=== PATIENT | female | born 1980 | race American Indian/Alaskan Native ===

== ENCOUNTER 2018-04-15 07:22 | Emergency (ER) | payer OTHER ==
[2018-04-15 07:42] VITALS: BP 144/93
[2018-04-15 08:02] LABS: HCG Qualitative,Urine Negative (Negative)
--- NOTE | 2018-04-15 08:09 | Emergency Department Report ---
ED Dysuria HPI - HPI Chief Complaint: Urogenital-Female Stated Complaint: CRAMPS AND BLEEDING Time Seen by Provider: 04/15/18 07:51 Duration: 1 Day Symptoms: Dysuria: No, Frequency: No, Suprapubic Pain: No, Flank Pain: No, Fever: No, Hematuria: No, Abdominal Pain: No, Previous UTI's: No Other History: Patient is a 37-year-old female who comes to the ER today with vaginal spotting. She was concerned because she had her period from April 06 to the . And then began spotting again yesterday. Patient was concerned that she was because she is trying to get . ED Review of Systems ROS: Stated complaint: CRAMPS AND BLEEDING Other details as noted in HPI Comment: All other systems reviewed and negative Constitutional: denies: chills Eyes: denies: as per HPI ENT: denies: ear pain Respiratory: denies: orthopnea Cardiovascular: denies: dyspnea on exertion Endocrine: denies: excessive sweating Genitourinary: as per HPI, hematuria, abnormal menses. denies: urgency, dysuria, frequency, discharge, dyspareunia Musculoskeletal: as per HPI ED Past Medical Hx - Social History Smoking Status: Never Smoker Substance Use Type: None Dysuria Exam - Exam General: Vital signs noted. No distress. Alert and acting appropriately. Exam: No Moist Mucous Membranes, No CVA Tenderness, No Abdominal Tenderness, No Rigidity or Guarding Labs: Lab Results 04/15/18 Range/Units 07:50 Urine HCG, Qual Negative (Negative) ED Course Vital Signs 04/15/18 07:34 Temperature 97.5 F L Pulse Rate 82 Respiratory 16 Rate Blood Pressure 144/93 O2 Sat by Pulse 100 Oximetry ED Medical Decision Making - Medical Decision Making Labs 04/15/18 07:50 Urine Color Red Urine Turbidity Slightly-cloudy Urine pH 6.0 Ur Specific Lisman 1.020 Urine Protein 100 mg/dl Urine Glucose (UA) Neg Urine Ketones Neg Urine Blood Lg Urine Nitrite Neg Ur Reducing Substances Not Reportable Urine Bilirubin Neg Urine Ictotest Not Reportable Urine Urobilinogen < 2.0 Ur Leukocyte Esterase Sm Urine WBC (Auto) 55.0 H Urine RBC (Auto) > 182.0 U Epithel Cells (Auto) 7.0 Urine Mucus Few Urine HCG, Qual Negative test negative. In discussing test results with patient she shared that she was really just concerned that she was . She is having no dysuria and she denies being concern for STD. I've offered a wet prep and Chlamydia gonorrhea test and she is declined. 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 Patient declined further testing. Critical care attestation.: If time is entered above; I have spent that time in minutes in the direct care of this critically ill patient, excluding procedure time. ED Disposition Clinical Impression: Irregular menses Disposition: TO HOME OR SELFCARE Is pt being admited?: No Does the pt Need Aspirin: No Condition: Stable Referrals: JHON BARRETO MD [Primary Care Provider] - 3-5 Days Time of Disposition: 08:24
[2018-04-15 08:11] LABS: Bilirubin,Urine NEG (Negative); Blood,Urine LG (Negative); Color,Urine Red (Yellow); Mucus,Urine FEW /HPF; Urobilinogen,Urine < 2.0 mg/dL (<2.0)
[2018-04-15 08:22] LABS: RBC,Urine > 182.0 /HPF (0.0-6.0)
== END 2018-04-15 08:40 | disposition home or self-care (01) ==
LOC: ED 07:22
DX: N92.6 Irregular menstruation, unspecified (principal)
CPT/HCPCS: 81001; 81025

== ENCOUNTER 2018-10-13 05:52 | Day surgery (SDC) | payer OTHER ==
--- NOTE | 2018-10-11 22:40 | History and Physical Report ---
History of Present Illness Date of examination: 10/09/18 History of present illness: Patient has been reassessed/reevaluated. H&P has been reviewed. No interval changes. This is a 38 years old female who presents with pelvic pain. Pt was being seen by [facility] and was diagnosed with large ovarian mass. Patient's work up has included pelvic ultrasounds which revealed a 8cm cystic mas with 5cm solid mass of left ovary. She does not report any increas in pain but does state she noted that her abdomen has been more bloated. She denies dysuria, dysmenorrhea, dyspareunia, vaginal itching, vaginal discharge, vaginal odor, painful bowel movements, constipation, diarrhea, nausea, vomiting, back pain and fever. Pain is located suprapubic. She describes the pain as pressure. Vital Signs: Patient Profile: 38 Years Old Female LMP: 10/02/2018 Height: 61 inches (154.94 cm) Weight: 156 pounds (70.91 kg) BMI: 29.47 BSA: 1.70 Menstrual History: LMP (date): 10/02/2018 Current Method of Contraception: None Past History : 4 Term Births: 3 Premature Births: 0 Living Children: 3 Para: 3 Mult. Births: 0 Prev : 0 Aborta: 1 Elect. Ab: 0 Spont. 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 Uterine Surgery (not C/S): negative Operations: Negative Past Surgical History Hospitalizations: negative Anesthesia Complications: negative Abnormal PAP: negative Uterine Anomaly: negative ILYA Exposure: negative Infertility: negative Infection History HIV Risk Eval: no Current Allergies (reviewed today): No known allergies Past Medical History: Negative Past Medical History Past Surgical History: Negative Past Surgical History Family History Summary: mother -pre diabetic Social History: +tobacco daily single works at [employer] Patient is single Smoking History: Patient currently smokes every day. Risk Factors: Smoked Tobacco Use: Current every day smoker Smokeless Tobacco Use: Never Passive smoke exposure: no Drug use: no HIV high-risk behavior: no Alcohol use: yes Exercise: no Seatbelt use: 100 % Review of Systems General Denies fever, chills, sweats, anorexia, fatigue, weakness, malaise, weight loss and sleep disorder. Complains of pelvic pain. Denies vaginal discharge, incontinence, dysuria, hematuria, urinary frequency, amenorrhea, menorrhagia, abnormal vaginal bleeding, genital sores, decreased libido, painful periods, painful sex, urinary urgency, hot flashes, vaginal dryness, vaginal itching and vaginal odor. CV Denies chest pains, palpitations, syncope, dyspnea on exertion, orthopnea, PND and peripheral edema. Resp Denies cough, dyspnea at rest, excessive sputum, hemoptysis, wheezing and pleurisy. GI Denies nausea, vomiting, diarrhea, constipation, change in bowel habits, abdominal pain, melena, hematochezia, jaundice, gas/bloating, indigestion/heartburn, dysphagia and odynophagia. Breast Denies left breast lump, right breast lump, nipple discharge, bloody discharge from nipple, breast pain, abnormal mammogram and breast enlargement. Psych Past History Past Medical History: other (SEE HPI) Past Surgical History: Other (SEE HPI) Social history: other (SEE HPI) Family history: other (SEE HPI) Medications and Allergies Allergies Allergy/AdvReac Type Severity Reaction Status Date / Time No Known Allergies Allergy Unverified 10/06/18 14:08 Home Medications Medication Instructions Recorded Confirmed Last Taken Type Multivitamin [Multiple Vitamins] 1 each PO DAILY 10/06/18 10/06/18 Unknown History Active Meds: Active Medications Celecoxib (Celebrex) 200 mg PO PREOP NR Stop: 10/13/18 23:59 Gabapentin (Neurontin) 300 mg PO PREOP NR Stop: 10/13/18 23:59 Lactated Ringer's (Lactated Ringers) 1,000 mls @ 100 mls/hr IV DIRECT CELE Midazolam HCl (Versed) 2 mg IV PREOP NR Stop: 10/13/18 23:59 Review of Systems Constitutional: other (SEE HPI) Exam - Physical Exam Narrative exam: HEENT: normocephalic, no lesions or deformities Skin no ulcers, xanthomas Chest: respiratory effort normal, clear to auscultation CV: regular, normal S1-S2, no murmur, no rub, no gallop Abdomen: soft, non-tender, no masses, bowel sounds normal Neuro: no gross anomalities Extremities: normal alignment, no joint enlargement, crepitus, masses or tenderness; normal tone and strength 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 No evidence of cystocele or rectocele. Cervix: normal appearance, no lesions, no discharge Uterus: normal position, midline, mobile Adnexae: no masses or tenderness Rectovaginal: exam defered Assessment and Plan - Patient Problems (1) Ovarian mass, left Current Visit: No Status: Acute Plan to address problem: Diagnosis explained to patient . Questions answered. Indications for and description of the procedure given. Questions answered. Patient agrees to proceed with robotic ovarian cystectomy. Discuss the risks of the surgery including infection, bleeding possibly heavy enough to require a blood transfusion, possible removal of her ovary and possible damage to adjacent organs. Also discussed the possibility of laparotomy needed. Questions answered patient agreed to proceed
[~2018-10-13 05:52] MED LIST: LACTATED RINGERS 1,000 ML IV SCH
[2018-10-13] MEDS ORDERED: VERSED IV NR (06:00)
[2018-10-13] MEDS ORDERED: NEURONTIN PO NR (06:00)
[2018-10-13] MEDS ORDERED: MARCAINE-EPI 0.25%-1:200,000 INFILTRATI ONE ×2 (07:15→07:59)
--- NOTE | 2018-10-13 07:16 | Anesthesia Day of Surgery ---
Anesthesia Day of Surgery - Day of Surgery Patient Examined: Yes Patient H&P Reviewed: Yes Patient is NPO: Yes
--- NOTE | 2018-10-13 07:16 | Anesthesia Consultation ---
Anesthesia Consult and Med Hx Date of service: 10/13/18 - Airway Anesthetic Teeth Evaluation: Good (broken upper left molar) ROM Head & Neck: Adequate Mental/Hyoid Distance: Adequate Mallampati Class: Class III Intubation Access Assessment: Possibly Difficult - Pulmonary Exam CTA: Yes - Cardiac Exam Cardiac Exam: RRR - Pre-Operative Health Status ASA Pre-Surgery Classification: ASA2 Proposed Anesthetic Plan: General - Pulmonary Hx Smoking: Yes (4-5cigs/day x12yrs) Hx Respiratory Symptoms: No - Cardiovascular System Hx Hypertension: No Hx Heart Attack/AMI: No Hx Percutaneous Transluminal Coronary Angioplasty (PTCA): No Hx Cardia Arrhythmia: No - Central Nervous System Hx Seizures: No CVA: No - Gastrointestinal Hx Gastroesophageal Reflux Disease: No - Endocrine Hx Renal Disease: No Hx Liver Disease: No Hx Insulin Dependent Diabetes: No Hx Non-Insulin Dependent Diabetes: No Hx Thyroid Disease: No - Other Systems Hx Alcohol Use: Yes (Occas) Hx Substance Use: Yes (Marijuana 2-3 times/week) Hx Obesity: No - Additional Comments Anesthesia Medical History Comments: No hx anesthetic complications.
[2018-10-13] MEDS ORDERED: DIPRIVAN 10 MG/ML IV ONE (07:23)
[2018-10-13] MEDS ORDERED: SUBLIMAZE ONE ×2 (07:23→09:47)
[2018-10-13 07:26] LABS: Basophils # (Auto) 0.1 K/mm3 (0.0-0.1); Basophils % (Auto) 0.5 % (0.0-1.8); Eosinophils # (Auto) 0.1 K/mm3 (0.0-0.4); Eosinophils % (Auto) 0.8 % (0.0-4.3); Hematocrit 38.2 % (30.3-42.9); Hemoglobin 13.7 gm/dl (10.1-14.3); Lymphocytes # (Auto) 3.9 K/mm3 (1.2-5.4); Lymphocytes % (Auto) 35.4 % (13.4-35.0); Mean Corpuscular HGB Conc 36 % (30-34); Mean Corpuscular Volume 80 fl (79-97); Monocytes # (Auto) 0.8 K/mm3 (0.0-0.8); Monocytes % (Auto) 6.9 % (0.0-7.3); Red Blood Count 4.77 M/mm3 (3.65-5.03); Red Cell Distribution Width 13.7 % (13.2-15.2)
[2018-10-13] MEDS ORDERED: XYLOCAINE MPF 2% ONE (07:27)
[2018-10-13] MEDS ORDERED: ZEMURON IV ONE ×2 (07:27→09:07)
[2018-10-13 07:35] LABS: Platelet Count TNR K/mm3 (140-440)
[2018-10-13] MEDS ORDERED: DILAUDID IV PRN (08:00)
[2018-10-13] MEDS ORDERED: NACL 0.9% IR ONE ×2 (08:00→10:10)
[2018-10-13] MEDS ORDERED: DILAUDID ONE (08:07)
[2018-10-13] MEDS ORDERED: DECADRON ONE (08:09)
[2018-10-13] MEDS ORDERED: ZOFRAN ONE (08:09)
[2018-10-13] MEDS ORDERED: ROBINUL ONE (09:58)
[2018-10-13] MEDS ORDERED: BLOXIVERZ ONE (09:58)
--- NOTE | 2018-10-13 10:20 | Short Stay Summary ---
Short Stay Documentation Date of service: 10/13/18 - History H&P: dictated Past Medical History: other (SEE HPI) Past Surgical History: Other (SEE HPI) Social history: other (SEE HPI) - Allergies and Medications Current Medications: Allergies No Known Allergies Allergy (Unverified 10/06/18 14:08) Home Medications Medication Instructions Recorded Confirmed Last Taken Type Multivitamin [Multiple Vitamins] 1 each PO DAILY 10/06/18 10/13/18 10/12/18 12:00 History DOXYCYCLINE Hyclate [Vibramycin 100 mg PO Q12HR #14 capsule 10/13/18 Unknown Rx CAP] Ibuprofen [Motrin 800 MG tab] 800 mg PO Q6H PRN #30 tablet 10/13/18 Unknown Rx oxyCODONE /ACETAMINOPHEN [Percocet 1 - 2 tab PO Q4H PRN #20 tablet 10/13/18 Unknown Rx 5/325 mg] Active Medications Celecoxib (Celebrex) 200 mg PO PREOP NR Stop: 10/13/18 23:59 Last Admin: 10/13/18 07:16 Dose: 200 mg Documented by: Gabapentin (Neurontin) 300 mg PO PREOP NR Stop: 10/13/18 23:59 Last Admin: 10/13/18 07:16 Dose: 300 mg Documented by: Hydromorphone HCl (Dilaudid) 0.5 mg IV Q10MIN PRN PRN Reason: Pain , Severe (7-10) Stop: 10/13/18 16:00 Lactated Ringer's (Lactated Ringers) 1,000 mls @ 100 mls/hr IV DIRECT CELE Last Admin: 10/13/18 07:05 Dose: 100 mls/hr Documented by: Midazolam HCl (Versed) 2 mg IV PREOP NR Stop: 10/13/18 23:59 Last Admin: 10/13/18 07:15 Dose: 2 mg Documented by: - Brief post op/procedure progress note Date of procedure: 10/13/18 (see operative note) - Hospital course Hospital course: Patient was admitted underwent the above him procedure without any complications. Patient will be discharged with follow-up in office in 1-2 weeks for postop check. - Disposition Condition at discharge: Good Disposition: DC-01 TO HOME OR SELFCARE - Discharge Diagnoses (1) Ovarian mass, left Status: Acute Short Stay Discharge Plan Activity: advance as tolerated Diet: regular Wound: open to air Follow up with: PRIMARY CARE,MD [Primary Care Provider] - 7 Days Forms: Outpatient Surgery DC Inst. Prescriptions: Ibuprofen [Motrin 800 MG tab] 800 mg PO Q6H PRN #30 tablet PRN Reason: Pain oxyCODONE /ACETAMINOPHEN [Percocet 5/325 mg] 1 - 2 tab PO Q4H PRN #20 tablet PRN Reason: Pain, Moderate DOXYCYCLINE Hyclate [Vibramycin CAP] 100 mg PO Q12HR #14 capsule
--- NOTE | 2018-10-13 10:31 | Operative Report ---
Operative Report Operative Report: Operative Report: Date of procedure: 10/13/2018 Pre-operative diagnosis: Left ovarian mass Post-operative diagnosis: Left dermoid cyst and pelvic adhesive disease Procedure name(s): Robotic assisted left salpingo-oophorectomy with lysis of adhesions Surgeon: Conrado Rodarte MD Field Court Researcher: Romina Bird, certified physical therapist assistant Anesthesia: General EBL: 25 mL Complications: None Findings: Patient with normal size uterus with filmy adhesions between the posterior uterus and bilateral adnexa and normal-appearing right ovary with a corpus luteum cyst left ovary with approximately 7 cm cyst. Which upon opening revealed no more cysts with sebaceous fluid and hair clearly identified. Left hydrosalpinx and blunted fimbriated end Specimen(s): Left fallopian tube and left ovary with dermoid cysts Procedure: Patient was brought to the operating room where general anesthesia was induced without difficulty. Patient was placed in the dorsal lithotomy position. Prepped and draped in the usual sterile manner for robotic procedure. Lemons catheter was placed without difficulty. Speculum was placed in the vagina. A Embedster V-Cardiola Uterine manipulator was placed without difficulty. Attention was now switched to the patient's abdomen. A vertical supra-umbilicus incision was made with a scalpel. A 10-12 trocar was placed in this incision under direct visualization. Intra-abdominal placement was verified with no evidence of internal organ damage. The patient pelvic findings were noted as above. It was determined that the patient was a candidate for robotic procedure. On both sides the camera port incision at 8 cm, incisions were made for robotic trocar. Each robotic trocar was placed under direct visualization with no evidence of internal organ damage. One surgery tech port was then placed. One 8-10 trocar was placed 2 fingerbreadths above the right iliac gudelia t. At this time the patient was placed in extreme Trendelenburg. The da Hilary robot was then docked on the patient's left side. At this time I took my place under the robotic operating kruse. Adhesions some of the necks into the uterus were taken down sharply and bluntly free and both adnexa. Initially the left ovarian cyst was punctured with a needle to try to aspirate the cyst. Initially normal ovarian fluid was removed. But upon opening the cyst wall more loculations could be seen. Opening of the deeper loculations revealed hair and sebaceous fluid was seen. As much as could be done through the aspirated the contents were suctioned out then an incision was made to remove the adnexa. The left ovarian vessels were identified with the ureter being out of the operative field. The ovarian vessels were cauterized and cut. This was followed by cauterizing and cutting the uterine ovarian complex and cauterized couldn't the fallopian tube approximately 2 cm from the cornea the mesial salpinx were then cauterized and cut until the left adnexa was completely removed. An Endo Catch was placed through the showroom sales assistant port in the left adnexa was in place and through the Endo Catch. The specimen was removed through the right lower quadrant incision extended it. It was successfully removed. The operative field was hemostatic. The patient's pelvic was copiously irrigated with approximately 3-1/2-4 L of saline and attempt to remove as much debris from the dermoid cyst as possible. In order to completely accomplish this the event da Hilary robot was undocked and the patient placed in reverse Trendelenburg with the Laparoscope in place and patient was suctioned. The operative bed was then is inspected and found to be hemostatic. Hemostat was placed along the operative bed attempt to prevent postoperative bleeding. All instruments were then removed. The large trocar sites were closed in layers with 2-0 and 4-0 Vicryl. The smaller incisions were closed subcuticularly with 4-0 Vicryl. The patient tolerated procedure well. She was awakened in the operating room and accompanied to the recovery room in good condition.
[2018-10-13 11:51] VITALS: BP 134/86
--- NOTE | 2018-10-13 12:39 | Post Anesthesia Evaluation ---
- Post Anesthesia Evaluation Patient Participated: Yes Airway Patent: Yes Stable Respiratory Function: Yes Nausea/Vomiting: No Temp > 96.8F: Yes Pain Manageable: Yes Adequeate Hydration: Yes Anesthesia Complications: No
== END 2018-10-13 11:40 | disposition home or self-care (01) ==
LOC: OR 05:52
PROVIDERS: ATTEND Obstetrics & Gynecology
DX: D27.1 Benign neoplasm of left ovary (principal); F17.210 Nicotine dependence, cigarettes, uncomplicated; Z79.899 Other long term (current) drug therapy; Z72.89 Other problems related to lifestyle; Z98.890 Other specified postprocedural states; Z86.2 Personal history of diseases of the blood and blood-forming organs and certain disorders involving the immune mechanism
CPT/HCPCS: 36415; 58661; 81025; 85025; 88307; 88311; A4217; J1100; J1170; J2250; J2405; J2704; J2710; J3010; J7120; 88305

== ENCOUNTER 2019-07-16 10:29 | Emergency (ER) | payer OTHER ==
[2019-07-16 10:35] VITALS: BP 125/89
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
== END 2019-07-16 11:33 | disposition left against medical advice (07) ==
LOC: ED 10:29
DX: S16.1XXA Strain of muscle, fascia and tendon at neck level, initial encounter (principal); S46.911A Strain of unspecified muscle, fascia and tendon at shoulder and upper arm level, right arm, initial encounter; R51 Headache; D57.1 Sickle-cell disease without crisis; F17.200 Nicotine dependence, unspecified, uncomplicated; Z79.1 Long term (current) use of non-steroidal anti-inflammatories (NSAID); Z79.899 Other long term (current) drug therapy; V49.49XA Driver injured in collision with other motor vehicles in traffic accident, initial encounter; Y93.89 Activity, other specified; Y92.410 Unspecified street and highway as the place of occurrence of the external cause; Y99.8 Other external cause status
CPT/HCPCS: 99281